=== PATIENT | female | born 1970 | race Caucasian/White ===

== ENCOUNTER 2018-03-18 23:35 | Emergency (ER) | payer SELFPAY ==
[~2018-03-18] VITALS: Ht 170.2 cm; Wt 129.0 kg
[~2018-03-18 23:35] MED LIST: AMOXICILLIN/CL875 MG OR; AMOXICILLIN/CL875 MG PO; AMOXICILLIN500 MG PO; AMOXICILLIN875 MG PO; AUGMENTIN875TAB OR; AUGMENTIN875TAB PO; CALCIUM 600 +600 MG PO; CEPHALEXIN500 M1 PO; CLINDAMYCIN150 MG PO; FISH OIL1000 MG PO; FLEXERIL OR; FLEXERIL PO; FLONASE NASAL50 MCG; FLONASE SPRAY50 MC1; FLUZONE SPLT1 M1 IM; IRON325 M1 PO; KEFLEX500 MG PO; LIPITOR20 M1 PO; LORTAB 1010 MG PO; MEDDOSEPAK PO; MOTRIN600 MG/TAB PO; MUCINEX600 MG PO; NAPROSYN500 MG PO; OMEPRAZOLE40 MG PO; PRAVASTATIN10 MG PO; PRILOSEC40 MG PO; PROZAC40 MG PO; ROBITUSSIN AC10 ML OR; ROBITUSSIN AC10 ML PO; SUDAFED 12HR120 MG OR; SUDAFED 12HR120 MG PO; SUDAFED 24HR1 TAB PO; TESSALON PER100 MG PO; TORADOL PO; TRAMADOL HCL50 MG PO; ULTRAM50 MG PO; XANAX0.5 MG PO; XYZAL5 MG PO; ZYRTEC10 M5 PO; [UNRECOGNIZED DRUG - OTHER] PO
[2018-03-19] MEDS ORDERED: PERCOCET 5/325M1 TAB PO (02:02)
[2018-03-19] MEDS ORDERED: IBUPROFEN600 MG PO (02:02)
[2018-03-19 02:18] VITALS: BP 140/70
== END 2018-03-19 02:32 | disposition home or self-care (01) | DRG 554 ==
LOC: ED 23:35
DX: M17.11 Unilateral primary osteoarthritis, right knee (principal); M76.9 Unspecified enthesopathy, lower limb, excluding foot; E78.00 Pure hypercholesterolemia, unspecified; I10 Essential (primary) hypertension; K21.9 Gastro-esophageal reflux disease without esophagitis
CPT/HCPCS: L1830

== ENCOUNTER 2019-02-22 17:43 | Emergency (ER) | payer OTHER ==
[~2019-02-22] VITALS: Ht 170.2 cm; Wt 138.6 kg
[~2019-02-22 17:43] MED LIST changes: +IBUPROFEN600 MG PO; +PERCOCET 5/325M1 TAB PO
[2019-02-22 18:35] LABS: IMMATURE GRANULOCYTES 0.2 % (0.0-5.0); MEAN CELL VOLUME 90.7 fL CALC (80.0-100.0); MEAN CORPUSCULAR HGB 29.6 pG CALC (26.0-32.0); MEAN CORPUSCULAR HGB CONC 32.6 g/L CALC (32.0-36.0); NEUT# 3.42 thou/uL (2.00-7.15); RED BLOOD COUNT 5.07 mill/uL (4.20-5.60)
[2019-02-22 18:42] LABS: URINE BILIRUBIN - DIPSTICK NEGATIVE (NEGATIVE); URINE BLOOD DIPSTICK NEGATIVE (NEGATIVE); URINE COLOR YELLOW; URINE GLUCOSE - DIPSTICK NEGATIVE (NEGATIVE); URINE KETONE NEGATIVE (NEGATIVE); URINE LEUK ESTERASE NEGATIVE (NEGATIVE); URINE NITRITE - DIPSTICK NEGATIVE (Negative); URINE PROTEIN - DIPSTICK NEGATIVE (NEG-TRACE); URINE SPECIFIC GRAVITY <=1.005; URINE UROBILINOGEN - DIPSTICK 0.2 E.U./dL (0.2)
[2019-02-22 18:54] LABS: ALBUMIN 4.4 g/dL (3.2-5.0); ALKALINE PHOSPHATASE 69 u/l (38-126); AMYLASE 32 u/l (30-110); ANION GAP 17 (6-22 (CALC)); BILIRUBIN, TOTAL 0.4 mg/dL (0.0-1.4); BUN 8 mg/dL (7-17); BUN/CREATININE RATIO 14 (12-20 (CALC)); CARBON DIOXIDE 24 mmol/l (22-30); CHLORIDE 102 mmol/l (95-108); CREATININE 0.6 mg/dL (0.5-1.0); GFR > 60 ML/MIN (>=60 (CALC)); GFR FOR AFR.AMER. > 60 ML/MIN (>=60 (CALC)); LIPASE 35 u/l (23-300); POTASSIUM 3.9 mmol/l (3.5-5.1); SODIUM 138 mmol/l (137-146); TOTAL PROTEIN 7.3 g/dL (6.3-8.2)
[2019-02-22 18:57] LABS: SGOT/AST 72 u/l (14-36)
[2019-02-22] MEDS ORDERED: BENTYL10 MG PO (20:41)
[2019-02-22] MEDS ORDERED: LOMOTIL2.5 MG PO (20:41)
[2019-02-22 20:50] VITALS: BP 128/77
== END 2019-02-22 21:01 | disposition home or self-care (01) ==
LOC: ED 17:43
PROVIDERS: Family Medicine
DX: A08.4 Viral intestinal infection, unspecified (principal); R19.7 Diarrhea, unspecified; R10.11 Right upper quadrant pain; R10.12 Left upper quadrant pain; R11.2 Nausea with vomiting, unspecified; F17.290 Nicotine dependence, other tobacco product, uncomplicated

== ENCOUNTER 2020-04-11 07:26 | Inpatient (IN) | payer MEDICAID ==
[~2020-04-11] VITALS: Ht 170.2 cm; Wt 118.2 kg
[~2020-04-11 07:26] MED LIST changes: +BENTYL10 MG PO; +FLONASE AL50 MCG/ACT IN; -FLONASE SPRAY50 MC1; +LOMOTIL2.5 MG PO
[2020-04-21] VITALS (11 sets, daily range): BP systolic 143–182; BP diastolic 70–108
[2020-04-21] MEDS ORDERED: PROPRANOLOL HCL60 MG PO ×2 (06:59→07:01)
[2020-04-21] MEDS ORDERED: PERCOCET 10/31 COMBO PO (09:40)
[2020-04-21] MEDS ORDERED: ASPIRIN325 MG PO (09:40)
--- NOTE | 2020-04-21 11:21 | NUR ---
PT ARRIVED TO MED SURG ROOM 271 IN STABLE CONDITION VIA STRETCHER, ACCOMPAINED BY OR STAFF. INTRODUCED SELF TO PT AND DISCUSSED POC. PT A/O X3 BUT STILL DROWSY. ASSESSMENT AND VITALS COMPLETED AT THIS TIME. BP 163/102,PT REPORTS THAT SHE DOES AHVE STRESS INTDUCED HTN.HR 79, O2 96% ON 3L O2. RESPIRATIONS ARE EVEN AND UNLABORED, LUNG SOUNDS ARE CLEAR. HEART RHYTHM IS NORMAL. BOWEL SOUNDS ARE ACTIVE. LAST REPORTED BM 04/20/2020. RADIAL AND PEDAL PULSES ARE STRONG WITH NORMAL CAPILLARY REFILL. NO EDEMA PRESENT AT THIS TIME. SCD APPLIED TO LEFT LEG. EYES ARE PERRL AND BRISK. PT REPORTS 7/10 PAIN IN RIGHT KNEE DUE TO RIGHT KNEE ARTHROPLASTY, INFORMED IN REPORT THAT DILAUDID WAS ADMINISTERED PRIOR TO ARRIVAL.PT ALSO REPORTS NAUSEA, RECIEVED IN REPORT THAT PHENERGAN WAS ADMINISTERED PRIOR TO ARRIVAL. PT INFORMED WRITTER THAT SHE IS ALLERGIC TO LOVASTATIN AND TRAMADOL, ALLERGY BAND APPLIED ALONG WITH FALL RISK BAND.ALL PT BELONGINGS ACCOUNT FOR, PT INFORMS WRITTER THAT SHE DOES HAVE FIFTY DOLLARS IN HER WALLET. PT REQUESTED TO KEEP IN ROOM.PT DENIES ANY OTHER NEEDS AT THIS TIME.PT DOES INFORM WRITTER THAT SHE VAPES ABOUT HALF A PACK A DAY AND USES THC FOR HER KNEE PAIN.PT INFORMS WRITTER THAT SHE DOES HAVE PARTIAL DENTURES BUT DID NOT BRING THEM WITH HER. ALL SAFETY PRECAUTIONS IN PLACE. 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 WILL CONTIUE TO MONITOR
--- NOTE | 2020-04-21 13:32 | NUR ---
PT PRESENTING WITH NAUSEA AND VOMITING AT THIS TIME. ZOFRAN ADMINISTED AT THIS TIME.PT REPORTS 8/10 IN RIGHT KNEE AT THIS TIME, DILAUDID ADMINISTED AT THIS TIME. COOL WASH CLOTHES PLACE ON PT HEAD TO HELP COOL.PT DENIES ANY OTHER PAIN OR DISCOMFORTS AT THIS TIME. ALL SAFTEY PRECAUTIONS IN PLACE WITH CALL LIGHT IN REACH. WILL CONTIUE TO MONITOR.
--- NOTE | 2020-04-21 14:19 | NUR ---
PT CURRENT BP 178/107 HR 77,PT ASYMPTOMATIC; NO DOMÍNGUEZ NOTIFIED OF ELEVATED BLOOD PRESSURE AND NEW ORDERS RECEIVED.PT TO BE MEDICATED WITH PRN APRESOLINE BY KEATON MARKS PER ORDER ONCE VERIFIED BY PHARMACY.
--- NOTE | 2020-04-21 15:20 | NUR ---
REASSESSMENT OF BP AT THIS TIME. BP 143/85, HR 83. RESPIRATIONS ARE EVEN AND UNLABORED AT THIS TIME. PT COMPLAINS OF NAUSEA,PHENERGAN TO BE ADMINISTERED.PT DENIES OF ANY PAIN OR OTHER DISCOMFORTS. WILL CONTIUE TO MONITOR.
--- NOTE | 2020-04-21 15:40 | NUR ---
PT REPORTS SEVERE NAUSEA. PHENERGAN IV ADMINSTERED AT THIS TIME.ALL SAFTEY PRECAUTIONS REMAIN IN PLACE AT THIS TIME. WILL CONTINUE TO MONITOR
--- NOTE | 2020-04-21 19:00 | NUR ---
RECEEIVED REPORT FROM NURSE PIERCE PATIENT CURRENTLY RESTING IN BED, WATCHING TV, EVEN UNLABORED BREATHING WOUND VAC ON RT KNEE.
--- NOTE | 2020-04-21 20:00 | NUR ---
PATIENT ASSISTED TO [facility]
--- NOTE | 2020-04-21 21:00 | NUR ---
PATIENT C/O OF NAUSEA, PRN ZOFRAN GIVEN AT THIS TIME. PATIENT STILL HAS LR @ 100CC/HR INFUSING WELL ON LAC, LBM 04/20, ICE PACK APPLIED ON RT KNEE, SCD IN PLACE, CALL LIGHT AT REACH.
--- NOTE | 2020-04-21 23:58 | NUR ---
PATIENT THROBBING PAIN ON RT KNEE REFUSED, PAIN MEDICATION, ICE PACK PROVIDE.
[2020-04-22] VITALS (7 sets, daily range): BP systolic 139–181; BP diastolic 82–105
--- NOTE | 2020-04-22 04:24 | NUR ---
PATIENT RESTING IN BED EYES CLOSED, BREARTHING EVEN AND UNLABORED, CALL LIGHT AT REACH.
--- NOTE | 2020-04-22 07:20 | NUR ---
REPORT RECEIVED FROM KEATON HERNANDEZ. PT RESTING IN BED SEMI FOWLERS; ALERT AND ORIENTED. C/O 9/10 PAIN TO RIGHT KNEE; KNEE IS WARM, RED, AND SWOLLEN WITH WOUND VAC IN PLACE; NO DRAINAGE IN SMALL PORTABLE WOUND VAC. PT DENIES NAUSEA. BP ELEVATED AT 180/98. SCD TO LLE. IS AT BEDSIDE. PLAN OF CARE REVIEWED. PT ENCOURAGED TO VERBALIZE CONCERNS. STATES UNDERSTANDING. SAFETY MEASURES IN PLACE. CALL LIGHT WITHIN REACH.
--- NOTE | 2020-04-22 08:22 | NUR ---
MORPHINE GIVEN FOR SEVERE PAIN; WILL REASSESS BLOOD PRESSURE.
--- NOTE | 2020-04-22 09:00 | NUR ---
PT UP TO CHAIR WITH USE OF WALKER AND ONE PERSON ASSIST. TOLERATED WELL, BUT REPORTS CONTINUED SEVERE PAIN.
[2020-04-22 09:20] LABS: HEMATOCRIT 45.4 % (37.0-47.0); HEMOGLOBIN 15.2 g/dl (12.0-16.0)
--- NOTE | 2020-04-22 09:27 | NUR ---
BP IMPROVED; NORVASC GIVEN ALONG WITH 2 PERCOCETS. PT REPOSITIONED BACK INTO BED SEMI FOWLERS. DR. BETANCOURT AT BEDSIDE FOR EVAL.
--- NOTE | 2020-04-22 11:13 | NUR ---
MORPHINE GIVEN FOR PAIN AFTER PHYSICAL THERAPY. IV SITE TO LAC OCCLUDED; NEW IV SITE STARTED TO RAC; IV FLUIDS NOW INFUSING AT KVO PER . PT AGAIN RESTING SEMI FOWLERS.
--- NOTE | 2020-04-22 14:37 | NUR ---
PT DOING ROM EXERCISES THAT PT DEMONSTRATED; MOVEMENTS CAUSING DISCOMFORT. PEROCOET GIVEN AT THIS TIME. NO OTHER REQUESTS OR CONCERNS. SAFETY MEASURES IN PLACE. CALL LIGHT WITHIN REACH.
--- NOTE | 2020-04-22 16:17 | NUR ---
ampac unchanged. Pt performed ankle pumps, quad sets, and heel slides in bed. She then transferred to EOB where she performed seated knee ext with 10 second hold. Therapist performed PROM with RLE. Pt then transferred to standing with SBA and ambulated 60ft with RW. She then sat back in bed. Therapist reviewed TKA post op exercises with patient.
--- NOTE | 2020-04-23 01:14 | NUR ---
Patient appears asleep at present after 2 Percocet given for pain, resp unlabored, IV remains intact and infusing well at 10cc/hr.
[2020-04-23 03:44] VITALS: BP 141/85
[2020-04-23 07:40] VITALS: BP 140/79
--- NOTE | 2020-04-23 07:40 | NUR ---
ASSESSMENT IS COMPLTED: IV SITE IS FREE FROM REDNESS OR EDEMA. HR S REG,PULSES ARE STRONG X4, ABD IS SOFT WITH ACTIVE BS, BREATH SOUNDS ARE CLEAR,BILATERALLY. WOUND VAC ON THE R LEG AFTER SURGERY. WARM TO THE TOUCH, SLUGGISH ON THE PULSE. LEFT PEDAL PULSE IS STRONG. CONTINUE TO OBSERVE AND MONITOR.
[2020-04-23 08:45] LABS: HEMATOCRIT 39.9 % (37.0-47.0)
[2020-04-23 09:31] LABS: HEMOGLOBIN 13.2 g/dl (12.0-16.0)
--- NOTE | 2020-04-23 12:28 | NUR ---
PT WAS SEEN THIS AM FOR GAIT TRAINING X 15 MINS. SHE WAS INDEP ON BED MOB AND TRANSFERS W/ RW. SHE REPORTS STIFFNESS ON QUADS AND HAMSTRINGS SHE STOOD UP TO GRAB THE RW. SHE THEN AMBULATED IN THE HALLWAY X ~80 FT W/ RW AND SBA TO ENSURE SAFETY. PT DID WELL ON AMBULATION. RETURNED TO HER ROOM AND REVIEWED POST OP EX. PT UNDERSTOOD AND AGREED TO COMPLY. NO COMPLAINTS POST TX. HER AMPAC SCORE TODAY IS 16 POINTS. SHE WAS ENCOURAGED TO CALL THE NURSE TO USE THE BATHROOM. SET UP THE COMMODE ELEVATED SEAT ON TOILET.
--- NOTE | 2020-04-23 12:30 | NUR ---
PT HAS BEEN AMBULATING WITHOUT ANY DIFFICULTY. IV SITE IS FREE FROM REDNESS OR EDEMA. CONTINUE TO OSBERVE AND MONITOR.
--- NOTE | 2020-04-23 14:28 | NUR ---
PT AMBULATING IN THE WADE WITH PHYSICAL THERAPY.
--- NOTE | 2020-04-23 14:57 | NUR ---
PT WAS SEEN FOR PM TX FOR GT. SHE WAS INDEP SUPINE>SIT>STAND. AMBULATED IN THE HALLWAY WITH RW AND SBA WITH GOOD GAIT PATTERN X ~80 FT. PT WAS INSTRUCTED ON PROPER TURNING AVOIDING PIVOT TURNING ON R LE. PT DEMONSTRATED WELL. KNEE FLEXION WAS 90 DEG, EXTENSION WAS -5 DEG. AMPAC SCORE: 16 POINTS. PT WILL BENEFIT FROM A SHORT-TERM HOME HEALTH P.T. PRIOR TO PROGRESSING TO OUT-PT REHAB.
[2020-04-23 15:23] VITALS: BP 107/67
[2020-04-23 19:05] VITALS: BP 113/67
--- NOTE | 2020-04-23 19:50 | NUR ---
PHYSICAL ASSESMENT COMPLETE. PLAN OF CARE REVIEWED. CALL ORONA WITHIN REACH, AGREES TO CALL PRN.
--- NOTE | 2020-04-23 20:45 | NUR ---
PT AMBULATING IN HALLWAY W/ FWW. GAIT STEADY AND BALANCED.
--- NOTE | 2020-04-23 22:15 | NUR ---
PT AMBULATING IN HALLWAY W/ FWW. GAIT STEADY AND BALANCED.
--- NOTE | 2020-04-24 01:00 | NUR ---
PT APPEARS TO BE SLEEPING, APPEARS COMFORTABLE AND IN NO DISTRESS. RESPIRATION REGULAR AND UNLABORED. CALL ORONA REMAINS WITHIN REACH.
[2020-04-24 03:55] VITALS: BP 115/70
--- NOTE | 2020-04-24 04:36 | NUR ---
PT WALKING IN HALLWAY W/ FWW. GAIT STEADY AND BALANCED.
[2020-04-24 07:03] LABS: HEMATOCRIT 36.9 % (37.0-47.0); HEMOGLOBIN 12.1 g/dl (12.0-16.0); MEAN CELL VOLUME 91.6 fL CALC (80.0-100.0); MEAN CORPUSCULAR HGB CONC 32.8 g/dL CAL (32.0-36.0); RED BLOOD COUNT 4.03 mill/uL (4.20-5.60); RED CELL DISTRI WIDTH 14.3 % (11.5-15.5)
[2020-04-24 07:17] LABS: ANION GAP 8 (6-22 (CALC)); BUN 8 mg/dL (7-17); BUN/CREATININE RATIO 15 (12-20 (CALC)); CARBON DIOXIDE 33 mmol/l (22-30); CHLORIDE 97 mmol/l (95-108); CREATININE 0.6 mg/dL (0.5-1.0); GFR > 60 ML/MIN (>=60 (CALC)); GFR FOR AFR.AMER. > 60 ML/MIN (>=60 (CALC)); POTASSIUM 3.2 mmol/l (3.5-5.1); SODIUM 135 mmol/l (137-146)
[2020-04-24 08:11] VITALS: BP 130/82
--- NOTE | 2020-04-24 08:11 | NUR ---
PT SITTING ON THE SIDE OF THE BED. A&O X3. SURCICAL INCISION TO RT KNEE DCI WITH PREVENA VAC IN PLACE. NO DRAINAGE NOTED. TRACE EDEMA NOTED TO RT ANKLE. PT REPORTS DISCOMFORT/PAIN. PT ABLE TO TOLERATE AMBULATING AROUND ROOM AND HALLWAY. LEG ELEVATED AND ICE PACK GIVEN. NO OTHER NEEDS AT THIS TIME. ASSESSMENT COMPLETED. CALL LIGHT IN REACH. CONTINUE TO MONITOR.
[2020-04-24] MEDS ORDERED: AMLODIPINE BESYL5 MG PO (10:02)
[2020-04-24 10:51] VITALS: BP 116/72
--- NOTE | 2020-04-24 11:03 | NUR ---
TOBACCO SPRAYER entered room and patient was in bed performing heel slides. She then transferred independently to EOB where she performed seated knee ext with 5SH 3x10. She then transferred to standing where she performed standing heel raises 3x10, mini squats 2x10, marching in place x2min. She then performed weight shifting with RW. After a rest she stood back up and performed standing hamstring curls 2x10 and standing hip ext (RLE only) 1x10 with RW for support. Patient has no c/o sharp pain just overall soreness on her TKA. She states she will soon be going home. ampac =20
--- NOTE | 2020-04-24 14:00 | NUR ---
D/C INSTRUCTIONS GIVEN TO PT. PT VERBALIZED UNDERSTANDING
--- NOTE | 2020-04-24 14:02 | NUR ---
Discharge instructions given. Patient verbalizes understanding of same. Discharged in stable condition via Wheelchair to home with [facility] accompanied by staff. All belongings sent with pt.
--- NOTE | 2020-04-24 14:51 | NUR ---
Discharge instructions given. Patient verbalizes understanding of same. Discharged in stable condition via Wheelchair to Home with [facility] accompanied by staff. all belonging sent with patient.
[2020-04-25] MEDS ORDERED: PERCOCET 5/325M1 TAB PO (22:57)
== END 2020-04-24 14:02 | DRG 470 ==
LOC: MS2 04-21 06:00 → OR 04-21 07:30 → MS2 04-24 14:02
PROVIDERS: Internal Medicine; ADMIT Orthopaedic Surgery; ATTEND Orthopaedic Surgery
PROC: 0SRC0J9 Replacement of Right Knee Joint with Synthetic Substitute, Cemented, Open Approach (ICD-10-PCS; principal; 2020-04-21)
DX: M17.0 Bilateral primary osteoarthritis of knee (principal); I10 Essential (primary) hypertension; E78.5 Hyperlipidemia, unspecified; K21.9 Gastro-esophageal reflux disease without esophagitis; R11.2 Nausea with vomiting, unspecified; T41.205A Adverse effect of unspecified general anesthetics, initial encounter; F17.290 Nicotine dependence, other tobacco product, uncomplicated; Z11.59 Encounter for screening for other viral diseases
CPT/HCPCS: J0131; J2270; J2710

== ENCOUNTER 2020-04-25 19:34 | Emergency (ER) | payer MEDICAID ==
[~2020-04-25 19:34] MED LIST changes: +AMLODIPINE BESYL5 MG PO; +ASPIRIN325 MG PO; +PERCOCET 10/31 COMBO PO; +PROPRANOLOL HCL60 MG PO
[2020-04-25 20:47] LABS: HEMATOCRIT 36.8 % (37.0-47.0); HEMOGLOBIN 12.3 g/dl (12.0-16.0); IMMATURE GRANULOCYTES 0.5 % (0.0-5.0); MEAN CORPUSCULAR HGB 30.1 pG CALC (26.0-32.0); MEAN CORPUSCULAR HGB CONC 33.4 g/dL CAL (32.0-36.0); NEUT# 6.99 thou/uL (2.00-7.15); RED BLOOD COUNT 4.09 mill/uL (4.20-5.60); RED CELL DISTRI WIDTH 14.2 % (11.5-15.5)
[2020-04-25 21:20] LABS: ALBUMIN 3.6 g/dL (3.2-5.0); ALKALINE PHOSPHATASE 78 u/l (38-126); ANION GAP 11 (6-22 (CALC)); BUN 9 mg/dL (7-17); BUN/CREATININE RATIO 17 (12-20 (CALC)); CARBON DIOXIDE 28 mmol/l (22-30); CHLORIDE 97 mmol/l (95-108); CREATININE 0.6 mg/dL (0.5-1.0); GFR > 60 ML/MIN (>=60 (CALC)); GFR FOR AFR.AMER. > 60 ML/MIN (>=60 (CALC)); POTASSIUM 3.3 mmol/l (3.5-5.1); SGOT/AST 39 u/l (14-36); SODIUM 133 mmol/l (137-146); TOTAL PROTEIN 6.4 g/dL (6.3-8.2)
[2020-04-25 21:23] LABS: BILIRUBIN, TOTAL 0.9 mg/dL (0.0-1.4)
[2020-04-25] MEDS ORDERED: PERCOCET 5/325M1 TAB PO (22:57)
[2020-04-25 23:07] VITALS: BP 115/61
== END 2020-04-25 23:23 | disposition home or self-care (01) | DRG 948 ==
LOC: ED 19:34
PROVIDERS: Emergency Medicine
DX: G89.18 Other acute postprocedural pain (principal); I10 Essential (primary) hypertension; F17.290 Nicotine dependence, other tobacco product, uncomplicated; Z96.651 Presence of right artificial knee joint

== ENCOUNTER 2020-05-13 04:26 | Emergency (ER) | payer MEDICAID ==
[~2020-05-13] VITALS: Ht 170.2 cm; Wt 119.1 kg
[2020-05-13] MEDS ORDERED: CEPHALEXIN500 MG PO (04:59)
[2020-05-13 05:45] VITALS: BP 138/77
== END 2020-05-13 05:45 | disposition home or self-care (01) ==
LOC: ED 04:26
DX: T81.41XA Infection following a procedure, superficial incisional surgical site, initial encounter (principal); I10 Essential (primary) hypertension; Y83.1 Surgical operation with implant of artificial internal device as the cause of abnormal reaction of the patient, or of later complication, without mention of misadventure at the time of the procedure; Z96.651 Presence of right artificial knee joint

== ENCOUNTER 2020-09-27 09:58 | Emergency (ER) | payer MEDICAID ==
[~2020-09-27] VITALS: Ht 170.2 cm; Wt 116.3 kg
[~2020-09-27 09:58] MED LIST changes: +CEPHALEXIN500 MG PO
[2020-09-27 12:51] VITALS: BP 146/92
== END 2020-09-27 13:00 | disposition home or self-care (01) ==
LOC: ED 09:58
DX: S80.02XA Contusion of left knee, initial encounter (principal); E78.5 Hyperlipidemia, unspecified; I10 Essential (primary) hypertension; F32.9 Major depressive disorder, single episode, unspecified; F41.9 Anxiety disorder, unspecified; F17.200 Nicotine dependence, unspecified, uncomplicated; W01.0XXA Fall on same level from slipping, tripping and stumbling without subsequent striking against object, initial encounter; Y92.000 Kitchen of unspecified non-institutional (private) residence as the place of occurrence of the external cause; Z96.652 Presence of left artificial knee joint

== ENCOUNTER 2021-07-02 14:16 | Inpatient (IN) | payer MEDICAID ==
[~2021-07-02] VITALS: Ht 170.2 cm; Wt 120.0 kg
[2021-07-02 15:07] LABS: GFR > 60 ML/MIN (>=60 (CALC)); GFR FOR AFR.AMER. > 60 ML/MIN (>=60 (CALC))
[2021-07-02 15:20] LABS: IMMATURE GRANULOCYTES 0.2 % (0.0-5.0); MEAN CELL VOLUME 89.7 fL CALC (80.0-100.0); MEAN CORPUSCULAR HGB 29.5 pG CALC (26.0-32.0); MEAN CORPUSCULAR HGB CONC 32.9 g/dL CAL (32.0-36.0); NEUT# 2.9 thou/uL (2.00-7.15); RED BLOOD COUNT 5.45 mill/uL (4.20-5.60); RED CELL DISTRI WIDTH 13.3 % (11.5-15.5)
[2021-07-02 15:30] LABS: HEMATOCRIT 48.9 % (37.0-47.0); HEMOGLOBIN 16.1 g/dl (12.0-16.0)
[2021-07-02 15:39] LABS: ALKALINE PHOSPHATASE 81 u/l (38-126); ANION GAP 17 (6-22 (CALC)); BILIRUBIN, TOTAL 0.7 mg/dL (0.0-1.4); BUN 9 mg/dL (7-17); BUN/CREATININE RATIO 11 (12-20 (CALC)); C-REACTIVE PROTEIN 3.6 mg/dL (0-0.9); CARBON DIOXIDE 23 mmol/l (22-30); CHLORIDE 96 mmol/l (95-108); CREATININE 0.8 mg/dL (0.5-1.0); GFR > 60 ML/MIN (>=60 (CALC)); GFR FOR AFR.AMER. > 60 ML/MIN (>=60 (CALC)); MAGNESIUM 1.9 mg/dL (1.6-2.3); POTASSIUM 3.3 mmol/l (3.5-5.1); SODIUM 133 mmol/l (137-146)
[2021-07-02 16:01] LABS: ALBUMIN 4.4 g/dL (3.2-5.0); SGOT/AST 69 u/l (14-36); TOTAL PROTEIN 7.9 g/dL (6.3-8.2)
[2021-07-02 22:03] VITALS: BP 143/83
[2021-07-03] VITALS (7 sets, daily range): BP systolic 117–150; BP diastolic 69–97
[2021-07-03 05:21] LABS: HEMATOCRIT 45.1 % (37.0-47.0); HEMOGLOBIN 14.9 g/dl (12.0-16.0); IMMATURE GRANULOCYTES 0.3 % (0.0-5.0); MEAN CELL VOLUME 91.1 fL CALC (80.0-100.0); MEAN CORPUSCULAR HGB 30.1 pG CALC (26.0-32.0); NEUT# 1.86 thou/uL (2.00-7.15); RED BLOOD COUNT 4.95 mill/uL (4.20-5.60); RED CELL DISTRI WIDTH 13.2 % (11.5-15.5)
[2021-07-03 06:05] LABS: ALBUMIN 3.9 g/dL (3.2-5.0); ALKALINE PHOSPHATASE 66 u/l (38-126); BUN 10 mg/dL (7-17); BUN/CREATININE RATIO 17 (12-20 (CALC)); C-REACTIVE PROTEIN 3.5 mg/dL (0-0.9); CHLORIDE 96 mmol/l (95-108); CREATININE 0.6 mg/dL (0.5-1.0); GFR > 60 ML/MIN (>=60 (CALC)); GFR FOR AFR.AMER. > 60 ML/MIN (>=60 (CALC)); POTASSIUM 3.3 mmol/l (3.5-5.1); SGOT/AST 63 u/l (14-36); SODIUM 134 mmol/l (137-146)
[2021-07-03 06:08] LABS: ANION GAP 13 (6-22 (CALC)); BILIRUBIN, TOTAL 0.4 mg/dL (0.0-1.4); CARBON DIOXIDE 28 mmol/l (22-30)
[2021-07-04 04:00] VITALS: BP 148/94
[2021-07-04 06:44] LABS: ALBUMIN 3.8 g/dL (3.2-5.0); ALKALINE PHOSPHATASE 64 u/l (38-126); ANION GAP 12 (6-22 (CALC)); BILIRUBIN, TOTAL 0.5 mg/dL (0.0-1.4); BUN 10 mg/dL (7-17); BUN/CREATININE RATIO 17 (12-20 (CALC)); CARBON DIOXIDE 31 mmol/l (22-30); CHLORIDE 93 mmol/l (95-108); CREATININE 0.6 mg/dL (0.5-1.0); GFR > 60 ML/MIN (>=60 (CALC)); GFR FOR AFR.AMER. > 60 ML/MIN (>=60 (CALC)); POTASSIUM 3.3 mmol/l (3.5-5.1); SGOT/AST 68 u/l (14-36); SODIUM 133 mmol/l (137-146); TOTAL PROTEIN 6.7 g/dL (6.3-8.2)
[2021-07-04 06:51] LABS: HEMATOCRIT 43.9 % (37.0-47.0); HEMOGLOBIN 14.6 g/dl (12.0-16.0); IMMATURE GRANULOCYTES 0.5 % (0.0-5.0); MEAN CELL VOLUME 91.3 fL CALC (80.0-100.0); MEAN CORPUSCULAR HGB 30.4 pG CALC (26.0-32.0); MEAN CORPUSCULAR HGB CONC 33.3 g/dL CAL (32.0-36.0); NEUT# 2.48 thou/uL (2.00-7.15); RED BLOOD COUNT 4.81 mill/uL (4.20-5.60); RED CELL DISTRI WIDTH 13.3 % (11.5-15.5)
[2021-07-04 08:58] VITALS: BP 132/79
[2021-07-04 11:21] VITALS: BP 112/64
[2021-07-04 15:05] VITALS: BP 139/77
[2021-07-04 20:00] VITALS: BP 127/78
[2021-07-04 23:31] VITALS: BP 117/66
[2021-07-05 03:46] VITALS: BP 98/69
[2021-07-05 05:30] LABS: HEMATOCRIT 45.6 % (37.0-47.0); HEMOGLOBIN 14.8 g/dl (12.0-16.0); IMMATURE GRANULOCYTES 0.2 % (0.0-5.0); MEAN CELL VOLUME 92.3 fL CALC (80.0-100.0); MEAN CORPUSCULAR HGB CONC 32.5 g/dL CAL (32.0-36.0); NEUT# 2.52 thou/uL (2.00-7.15); RED BLOOD COUNT 4.94 mill/uL (4.20-5.60); RED CELL DISTRI WIDTH 13.4 % (11.5-15.5)
[2021-07-05 05:58] LABS: ALBUMIN 3.6 g/dL (3.2-5.0); ALKALINE PHOSPHATASE 66 u/l (38-126); ANION GAP 12 (6-22 (CALC)); BILIRUBIN, TOTAL 0.4 mg/dL (0.0-1.4); BUN 13 mg/dL (7-17); BUN/CREATININE RATIO 23 (12-20 (CALC)); C-REACTIVE PROTEIN 3.8 mg/dL (0-0.9); CARBON DIOXIDE 32 mmol/l (22-30); CHLORIDE 96 mmol/l (95-108); CREATININE 0.6 mg/dL (0.5-1.0); GFR > 60 ML/MIN (>=60 (CALC)); GFR FOR AFR.AMER. > 60 ML/MIN (>=60 (CALC)); POTASSIUM 3.4 mmol/l (3.5-5.1); SGOT/AST 61 u/l (14-36); SODIUM 136 mmol/l (137-146); TOTAL PROTEIN 6.6 g/dL (6.3-8.2)
[2021-07-05 08:51] VITALS: BP 134/74
[2021-07-05 11:36] VITALS: BP 140/74
[2021-07-05 15:00] VITALS: BP 132/74
[2021-07-05 19:00] VITALS: BP 140/76
[2021-07-06] VITALS: BP 119/62
[2021-07-06 03:50] VITALS: BP 139/79
[2021-07-06 05:45] LABS: HEMATOCRIT 44.1 % (37.0-47.0); HEMOGLOBIN 14.4 g/dl (12.0-16.0); IMMATURE GRANULOCYTES 0.5 % (0.0-5.0); MEAN CELL VOLUME 91.9 fL CALC (80.0-100.0); MEAN CORPUSCULAR HGB CONC 32.7 g/dL CAL (32.0-36.0); NEUT# 2.28 thou/uL (2.00-7.15); RED BLOOD COUNT 4.8 mill/uL (4.20-5.60); RED CELL DISTRI WIDTH 13.2 % (11.5-15.5)
[2021-07-06 06:07] LABS: ALBUMIN 3.4 g/dL (3.2-5.0); ALKALINE PHOSPHATASE 65 u/l (38-126); ANION GAP 11 (6-22 (CALC)); BILIRUBIN, TOTAL 0.3 mg/dL (0.0-1.4); BUN 13 mg/dL (7-17); BUN/CREATININE RATIO 23 (12-20 (CALC)); CARBON DIOXIDE 32 mmol/l (22-30); CHLORIDE 98 mmol/l (95-108); CREATININE 0.6 mg/dL (0.5-1.0); GFR > 60 ML/MIN (>=60 (CALC)); GFR FOR AFR.AMER. > 60 ML/MIN (>=60 (CALC)); POTASSIUM 3.2 mmol/l (3.5-5.1); SGOT/AST 50 u/l (14-36); SODIUM 138 mmol/l (137-146); TOTAL PROTEIN 6.2 g/dL (6.3-8.2)
[2021-07-06 09:46] VITALS: BP 148/79
[2021-07-06 10:30] VITALS: BP 148/84
[2021-07-06 15:50] VITALS: BP 158/80
[2021-07-06 19:00] VITALS: BP 157/80
[2021-07-07 00:52] VITALS: BP 135/67
[2021-07-07 04:00] VITALS: BP 145/94
[2021-07-07 05:44] LABS: HEMATOCRIT 45.1 % (37.0-47.0); HEMOGLOBIN 14.7 g/dl (12.0-16.0); IMMATURE GRANULOCYTES 0.8 % (0.0-5.0); MEAN CELL VOLUME 91.7 fL CALC (80.0-100.0); MEAN CORPUSCULAR HGB 29.9 pG CALC (26.0-32.0); MEAN CORPUSCULAR HGB CONC 32.6 g/dL CAL (32.0-36.0); NEUT# 2.2 thou/uL (2.00-7.15); RED BLOOD COUNT 4.92 mill/uL (4.20-5.60); RED CELL DISTRI WIDTH 13.1 % (11.5-15.5)
[2021-07-07 06:17] LABS: ALBUMIN 3.8 g/dL (3.2-5.0); ALKALINE PHOSPHATASE 70 u/l (38-126); ANION GAP 12 (6-22 (CALC)); BILIRUBIN, TOTAL 0.4 mg/dL (0.0-1.4); BUN 11 mg/dL (7-17); BUN/CREATININE RATIO 19 (12-20 (CALC)); CARBON DIOXIDE 33 mmol/l (22-30); CHLORIDE 97 mmol/l (95-108); CREATININE 0.6 mg/dL (0.5-1.0); GFR > 60 ML/MIN (>=60 (CALC)); GFR FOR AFR.AMER. > 60 ML/MIN (>=60 (CALC)); MAGNESIUM 1.9 mg/dL (1.6-2.3); POTASSIUM 3.3 mmol/l (3.5-5.1); SGOT/AST 45 u/l (14-36); SODIUM 139 mmol/l (137-146); TOTAL PROTEIN 6.7 g/dL (6.3-8.2)
[2021-07-07 07:10] VITALS: BP 142/85
[2021-07-07 10:47] VITALS: BP 154/74
[2021-07-07] MEDS ORDERED: DEXAMETHASON6 MG PO (14:03)
[2021-07-07] MEDS ORDERED: ZITHROMAX250 MG PO (14:03)
[2021-07-07] MEDS ORDERED: ASPIRIN REGULA325 M1 PO (14:05)
[2021-07-07 14:54] VITALS: BP 145/80
== END 2021-07-07 15:04 | disposition home or self-care (01) | DRG 177 ==
LOC: ED 14:16 → ED-I 16:52 → ED 17:03 → ED-I 17:04 → MS2 20:13
PROVIDERS: Family Medicine; Nurse Practitioner; ADMIT Hospitalist; ATTEND Hospitalist
PROC: XW033E5 Introduction of Remdesivir Anti-infective into Peripheral Vein, Percutaneous Approach, New Technology Group 5 (ICD-10-PCS; principal; 2021-07-03)
DX: U07.1 COVID-19 (principal); J12.82 Pneumonia due to coronavirus disease 2019; R09.02 Hypoxemia; E87.6 Hypokalemia; I10 Essential (primary) hypertension; E78.5 Hyperlipidemia, unspecified; K21.9 Gastro-esophageal reflux disease without esophagitis; F32.9 Major depressive disorder, single episode, unspecified; F41.9 Anxiety disorder, unspecified; F17.290 Nicotine dependence, other tobacco product, uncomplicated
CPT/HCPCS: J1650